=== PATIENT | female | born 1985 | race Caucasian/White ===

== ENCOUNTER 2019-06-05 12:38 | Emergency (ER) | payer OTHER ==
[2019-06-05 13:50] LABS: BHCG - Serum POSITIVE (NEGATIVE); Pregs Control Background? CLEAR/WHITE (CLR/WHITE); Pregs Control Bar Appear? YES (CONTROL BAR)
--- NOTE | 2019-06-05 14:58 | ULT ---
TRANSABDOMINAL TRANSVAGINAL PELVIC ULTRASOUND DATE:: 06/05/2019 1:48 PM CLINICAL HISTORY: and vaginal bleeding. COMPARISON: None. TECHNIQUE: Grayscale, color Doppler and spectral Doppler images were obtained of the pelvis see a tra nsabdominal transvaginal approach Uterus: Size: 9.4 x 4.8 x 5.8 cm Mass: None Cervix: Within normal limits Endometrium: There is an intrauterine gestational sac with pole and yolk sac identified. Cardia c activity is noted at 103 bpm. Small subchorionic bleed is seen along the left lateral margin of the gestational sac. This occupies less than 25% of the circumference of the gestational sac (0.7 cm in greatest diameter). Ovaries: Size: right measures 2.4 x 3.0 x 2.1 cm; left measures 2.0 x 3.0 x 1.5 cm Mass: None. Flow: Normal Cul-de-sac: Mild free fluid IMPRESSION: Single live intrauterine gestation. Small subchorionic hemorrhage seen along the lateral margin of the gestational sac. Continued clinica l and sonographic follow-up is recommended.
== END 2019-06-05 17:30 | disposition home or self-care (01) ==
LOC: ERS 12:38
DX: O20.0 Threatened abortion (principal); Z79.899 Other long term (current) drug therapy; Z3A.01 Less than 8 weeks gestation of pregnancy
CPT/HCPCS: 36415; 76856; 84702; 84703; 86900; 86901

== ENCOUNTER 2019-06-09 10:04 | Outpatient (CLI) | payer OTHER ==
--- NOTE | 2019-06-09 11:20 | ULT ---
PELVIC ULTRASOUND INCLUDING TRANSABDOMINAL AND TRANSVAGINAL AND VASCULAR DUPLEX WITH COLOR AND SPECTR AL DOPPLER IMAGING: Date: 06/09/19 HISTORY: Follow-up intrauterine for viability, amenorrhea. COMPARISON: 06/05/19. FINDINGS: The uterus measures 8.2 x 5.0 x 5.6 cm. Right ovary measures 2.0 x 2.5 x 1.8 cm. Left ovary measures 2.2 x 2.9 x 2.3 cm. The previously noted gestational sac, yolk sac, and pole are no longer visualized. There is het erogeneous abnormal thickening of the endometrium up to 2.3 cm with hemorrhage or heterogeneous debri s or indistinct products of conception noted within the uterus. Vascular flow is noted to both ovarie s. No evidence of ovarian torsion. No abnormal fluid collection. IMPRESSION: Previously noted gestational sac, yolk sac, and pole are no longer evident. Markedly thickened heterogeneously echogenic endometrium with debris, hemorrhage, and/or unidentifiable products of conc eption, evidence for incomplete . POS: [facility]
== END 2019-06-09 10:05 | disposition home or self-care (01) ==
LOC: SCSULT 10:04
DX: N91.2 Amenorrhea, unspecified (principal)
CPT/HCPCS: 76856

== ENCOUNTER 2020-06-07 10:06 | Day surgery (SDC) | payer OTHER ==
[2020-06-07 11:28] VITALS: BMI 24.3
[2020-06-07] MEDS ORDERED: hydrALAZINE 20 MG/ML VIAL SLOW IVP PRN (13:10)
--- NOTE | 2020-06-07 14:22 | PRG ---
DATE OF SERVICE: 06/07/2020 PRIMARY OB: Mariusz Isaac MD CHIEF COMPLAINT: UTI. HISTORY OF PRESENT ILLNESS: The patient is a 35-year-old, G3, P1 female with an intrauterine at 11 weeks and a day, who was recently diagnosed with a urinary tract infection at her clinic facility resistant to most oral antibiotics. Decision after discussion with Infectious Disease was for her to get IV gentamicin here in Labor and Delivery. The patient had some questions about risks and benefits of antibiotic choice and I was asked to come and speak with her. The patient had done some research online and had learned that there was some ototoxicity to the medication. She could not find any specific data linking a strong association and was asking for options. We did discuss options that Dr. Isaac had offered. One is her antibiotic today. Two would be to wait until later in the to 16 weeks with the risk of developing pyelonephritis and then three would be to not take it and try some alternative medication or alternative antibacterial therapy. After discussing how we typically use gentamicin during and that toxicity to gentamicin has not been identified among the patients who have used it and without finding any strong literature, she has chosen to take the dose of gentamicin. PAST MEDICAL HISTORY: Negative. PAST SURGICAL HISTORY: Negative. ALLERGIES: NO KNOWN DRUG ALLERGIES. MEDICATIONS: vitamins. REVIEW OF SYSTEMS: The patient denies fever, cough, headache, chest pain, shortness of breath, nausea, vomiting, diarrhea, constipation, hip problems, knee problems, or muscle weakness. She denies any new rashes, bleeding, leaking fluid, urinary urgency, or frequency. She does report some midline lower back pain that she has had with the , but it is mild in nature. PHYSICAL EXAMINATION: VITAL SIGNS: Blood pressure is 115/66, heart rate of 90, respiratory rate of 18, temperature 98.7. GENERAL: She appears to be in no acute distress. She is alert, oriented, cooperative, and pleasant to interact with. HEAD: Normocephalic, atraumatic. LUNGS: Clear to auscultation bilaterally. HEART: Has regular rate and rhythm. ABDOMEN: Gravid, soft, nontender. EXTREMITIES: Nontender, nonedematous. ASSESSMENT AND PLAN: The patient is a 35-year-old female with an intrauterine at 11 weeks here for IV gentamicin for a bacterial infection. I did review the culture results with the patient and visually going over the sensitivities with her. The patient after receiving the gentamicin, had no adverse reactions and is being discharged home. The patient did ask about when she needs to follow up culture for approve of clearance. She has an appointment next Wednesday with her OB office at which time, I have encouraged that she ask them at that time as I anticipate this culture being done in the next few weeks in the office. Job ID: [id number]
== END 2020-06-07 13:03 | disposition home health service (06) ==
LOC: L&D/OP 10:06
PROVIDERS: ATTEND Obstetrics & Gynecology
DX: O23.41 Unspecified infection of urinary tract in pregnancy, first trimester (principal); O09.521 Supervision of elderly multigravida, first trimester; Z3A.11 11 weeks gestation of pregnancy
CPT/HCPCS: 96365; 99282; J1580; J3490